=== PATIENT | female | born 1935 | race Caucasian/White ===

== ENCOUNTER 2018-04-27 16:06 | Emergency (ER) | payer OTHER ==
[~2018-04-27] VITALS: Ht 154.9 cm; Wt 58.4 kg
[~2018-04-27 16:06] MED LIST: ADVIL200 MG PO; ARTHROTEC 751 TABLET PO; FERROUS SULFAT325 MG PO; FIORICET,ESG1 TABLET PO; INDERAL LA80 MG PO; LEVOTHYROXINE88 MCG PO; LOW DOSE ASPIRI81 M1 PO; PRAVASTATIN SOD80 MG PO; TYLENOL REGULA325 MG PO; ULTRAM50 MG PO; XARELTO10 MG PO
[2018-04-27] MEDS ORDERED: NORCO 5/3251 TABLET PO (19:19)
[2018-04-27] MEDS ORDERED: FLEXERIL5 MG PO (19:19)
[2018-04-27 19:29] VITALS: BP 148/70
== END 2018-04-27 19:31 | disposition home or self-care (01) ==
LOC: EME 16:06
DX: S29.012A Strain of muscle and tendon of back wall of thorax, initial encounter (principal); M25.511 Pain in right shoulder; M54.2 Cervicalgia; X50.9XXA Other and unspecified overexertion or strenuous movements or postures, initial encounter; Y99.0 Civilian activity done for income or pay; M47.892 Other spondylosis, cervical region; M43.12 Spondylolisthesis, cervical region; I10 Essential (primary) hypertension; Z79.82 Long term (current) use of aspirin
CPT/HCPCS: 71046; 72040; 99281; 99284